=== PATIENT | female | born 1995 | race Caucasian/White ===

== ENCOUNTER 2017-03-08 23:16 | Emergency (ER) | payer OTHER ==
[~2017-03-08] VITALS: Ht 170.2 cm; Wt 51.3 kg
[2017-03-08] MEDS ORDERED: IBUPROFEN 400 MG TABLET PO ONE (23:30)
[2017-03-08] MEDS ORDERED: IBUPROFEN 400 MG TABLET ONE (23:31)
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
--- NOTE | 2017-03-09 00:05 | NUR ---
PT TO CT.
--- NOTE | 2017-03-09 00:25 | NUR ---
PT RETURNED FROM CT.
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
[2017-03-09 01:21] VITALS: BP 106/68
== END 2017-03-09 01:22 | disposition home or self-care (01) ==
LOC: ER 23:17
DX: S16.1XXA Strain of muscle, fascia and tendon at neck level, initial encounter (principal); S30.0XXA Contusion of lower back and pelvis, initial encounter; V43.52XA Car driver injured in collision with other type car in traffic accident, initial encounter; Y93.89 Activity, other specified; Y92.89 Other specified places as the place of occurrence of the external cause; Y99.8 Other external cause status
CPT/HCPCS: 72125; 72220; 99284; A4606; Z7610